=== PATIENT | female | born 1975 | race Caucasian/White ===

== ENCOUNTER → 2021-05-03 13:22 | Outpatient (BNVA) | payer MEDICARE, SELFPAY | PROVIDERS: Visit Provider Nurse Practitioner Family | DX: R00.0 Tachycardia, unspecified (principal); R00.2 Palpitations | CPT/HCPCS: 93005; 99212 ==

== ENCOUNTER → 2021-06-06 11:07 | Outpatient (REF) | payer MEDICARE, SELFPAY ==
--- NOTE | 2021-06-06 11:12 | HM_ITS ---
Conclusion: Patient was monitored for total of 3 days. Baseline rhythm sinus rhythm with average heart rate of 74 beats per minute. There were multiple pauses noted total of 5 with longest pause of 2.7 seconds, all of them during sleep hours. No atrial fibrillation or ventricular tachyarrhythmias noted There were total of 11 PACs, card for less than 0.01% of total beats accounted for very rare PACs. Patient reported 2 events which correlated with sinus rhythm MTDD
== END ==
LOC: HO.CARD 11:07
PROVIDERS: PCP Internal Medicine; Visit Provider Nurse Practitioner Family
DX: R00.2 Palpitations (principal)
CPT/HCPCS: 93242

== ENCOUNTER → 2021-06-29 13:16 | Outpatient (BNVA) | payer MEDICARE, SELFPAY | PROVIDERS: PCP Internal Medicine; Referring Provider Internal Medicine; Visit Provider Nurse Practitioner Family | DX: R00.0 Tachycardia, unspecified (principal); R00.2 Palpitations; G47.33 Obstructive sleep apnea (adult) (pediatric); E66.9 Obesity, unspecified; Z79.899 Other long term (current) drug therapy | CPT/HCPCS: Q3014 ==

== ENCOUNTER → 2022-07-06 13:12 | Outpatient (BNVA) | payer MEDICARE, SELFPAY | PROVIDERS: PCP Internal Medicine; Visit Provider Internal Medicine Cardiovascular Disease | DX: R00.2 Palpitations (principal); R00.0 Tachycardia, unspecified; G47.33 Obstructive sleep apnea (adult) (pediatric); Z98.84 Bariatric surgery status | CPT/HCPCS: 99212 ==

== ENCOUNTER 2023-07-11 13:48 | Outpatient (AMB) | payer OTHER, SELFPAY ==
[2023-07-11 13:55] VITALS: BP 120/80; PULSE 74; BMI 49.2
--- NOTE | 2023-07-11 13:55 | MHC.OFFVIS ---
Intake Vital Signs 07/11/23 13:55 Height 5 ft 4 in Weight 286 lb 9.615 oz BMI 49.2 BP 120/80 Blood Pressure Location Lt brachial Position Sitting Pulse 74 Intake Visit Reasons: 1 year followup w/ekg dx: inapp tachycardia Intake Note: 1 year follow-up with ekg having palpitations and sob [employer]ane [employer]ter Required: No Allergies No Known Allergies [No Known Allergies*] Allergy (Verified 06/29/21 13:18) Medication List - Last Reconciled 07/11/23 by Chalino Sutton MD glatiramer (Copaxone) mg subcut propranolol ER 160 mg PO DAILY 30 days HPI HPI Comments History of Present Illness Details Yarelis comes for follow-up. She has increased symptoms of palpitations recently. She says she has lot of stress related to health issues in her family. She is not using a CPAP regularly. Has not been able to lose much weight. Denies any significant other cardiac symptoms. [facility] Medical History MODESTO (obstructive sleep apnea) Inappropriate sinus tachycardia Surgical History Hx of abdominal surgery History of removal of laparoscopic gastric banding device Hx of laparoscopic gastric banding Family History Father No problems noted. Mother Diabetes HTN (hypertension) Lymphoma Social History Patient Tobacco Use Status: Never used Tobacco Review of Systems Const Denies chills, Denies fatigue, Denies fever(s), Denies frequent falls, Denies weakness, Denies weight gain and Denies weight loss ENT Denies dizziness Card Denies chest pain, Denies leg edema, Denies lightheadedness, Denies palpitations, Denies dyspnea, Denies dyspnea on exertion, Denies orthopnea and Denies other (loss of consciousness) Resp Denies cough, Denies dyspnea and Denies dyspnea on exertion GI Denies hematochezia and Denies change in stool character Musc Denies abnormal gait, Denies muscle weakness, Denies numbness, Denies radiating pain into limb and Denies tingling Neuro Denies abnormal gait, Denies dizziness, Denies frequent falls, Denies numbness, Denies tingling and Denies weakness Endo Denies fatigue and Denies palpitations Physical Exam Vital Signs: Last Vital Signs Pulse 74 07/11/23 13:55 BP 120/80 07/11/23 13:55 BMI result Body Mass Index 49.2 Const General: cooperative, comfortable and no acute distress Orientation/consciousness: patient oriented x3 HEENT Head: Yes normal to inspection Neck Neck: Yes normal visual inspection and Yes no JVD Carotids: normal carotid upstroke Resp Effort & Inspection: normal respiratory effort Auscultation: clear to auscultation bilaterally, no crackles, no rales, no rhonchi and no wheezes Cardio Jugular venous distension: no JVD Rate: regular rate Rhythm: regular rhythm Heart sounds: S1 normal heart sound present, S2 normal heart sound present, no gallops, no murmurs and no rubs Peripheral pulses: Peripheral pulses 2+ throughout Neuro General: patient oriented x3 Extrem General: Yes normal to inspection, No no pedal edema and No calf tenderness Office Procedures EKG Details: EKG shows normal sinus rhythm with normal EKG [id number], Complete Assessment & Plan Assessment & Plan (1) Inappropriate sinus tachycardia: Code(s): R00.0 - Tachycardia, unspecified Plan: Prior history of in approach sinus tachycardia currently on high-dose propranolol therapy with symptoms of palpitations which are most likely suggestive of related to increase catecholamine in surge related to increased personal stress as well as in adequate treatment for sleep apnea. Discussed with her the importance of treatment for sleep apnea to reduce elevated clinical main levels. Participate in aggressive weight loss programs will be recommended. Continue propranolol therapy. Would avoid any additional therapy unless there is significant evidence of arrhythmias. Would suggest a 48 hour altered monitor for the same. Will follow up in the clinic in 1 year's time, sooner p.r.n.. Thank you for allowing me to partake in the care Coding Level of Care Code Est Pt Level 3 (73540) Diagnoses Inappropriate sinus tachycardia R00.0 CPT Codes EKG - CPT: 00867-[id number], Complete ([id number])
== END 2023-07-11 14:36 | disposition home or self-care (01) ==
PROVIDERS: PCP Internal Medicine; Visit Provider Internal Medicine Cardiovascular Disease
DX: R00.0 Tachycardia, unspecified (principal)
CPT/HCPCS: 93010; 99213

== ENCOUNTER → 2023-07-11 13:48 | Outpatient (BNVA) | payer OTHER, SELFPAY | PROVIDERS: PCP Internal Medicine; Visit Provider Internal Medicine Cardiovascular Disease | DX: R00.0 Tachycardia, unspecified (principal) | CPT/HCPCS: 93005; 99212 ==

== ENCOUNTER 2024-09-16 09:45 | Outpatient (AMB) | payer MEDICARE, MEDICAID, SELFPAY ==
--- NOTE | 2024-09-16 09:48 | A.OFFVIS_ITS ---
Vital Signs 09/16/24 09:49 Height 5 ft 4 in Weight 293 lb 3.437 oz BMI 50.3 BP 124/68 Blood Pressure Location Lt brachial Position Sitting Pulse 75 Pulse Source Monitor Intake Visit Reasons: 1 year follow up Allergies No Known Allergies [No Known Allergies*] Allergy (Verified 06/29/21 13:18) Medication List - Last Reconciled 09/16/24 by Chalino Sutton MD glatiramer (Copaxone) mg subcut propranolol ER 160 mg PO DAILY HPI Comments Details: Nancy comes for follow-up. She has no new cardiac symptoms. Has not been able to lose much weight. Currently also not using a CPAP machine. However symptoms of palpitation rapid heart rate have stayed stable. Blood pressures remained stable as well. Denies any exertional chest pain or shortness of breath. No heart failure symptoms. [facility] Medical History MODESTO (obstructive sleep apnea) Inappropriate sinus tachycardia Surgical History Hx of abdominal surgery History of removal of laparoscopic gastric banding device Hx of laparoscopic gastric banding Family History Father No problems noted. Mother Diabetes HTN (hypertension) Lymphoma Social History Patient Tobacco Use Status: Never used Tobacco Review of Systems Const Denies weakness ENT Denies dizziness Card Denies chest pain, Denies chest pain with activity, Denies syncope, Denies rapid heart rate, Denies pedal edema, Denies edema, Denies leg edema, Denies lightheadedness, Denies palpitations, Denies dyspnea, Denies dyspnea on exertion and Denies orthopnea Resp Denies cough, Denies dyspnea and Denies dyspnea on exertion GI Denies hematochezia and Denies change in stool character Musc Denies abnormal gait, Denies muscle cramps, Denies muscle weakness, Denies numbness, Denies radiating pain into limb and Denies tingling Neuro Denies abnormal gait, Denies dizziness, Denies syncope, Denies numbness, Denies tingling and Denies weakness Endo Denies palpitations Physical Exam Vital Signs: Last Vital Signs Pulse 75 09/16/24 09:49 BP 124/68 09/16/24 09:49 BMI result Body Mass Index 50.3 Const General: cooperative, comfortable and no acute distress Orientation/consciousness: patient oriented x3 HEENT Head: Yes normal to inspection Neck Neck: Yes normal visual inspection and Yes no JVD Carotids: normal carotid upstroke Resp Effort & Inspection: normal respiratory effort Auscultation: clear to auscultation bilaterally, no crackles, no rales, no rhonchi and no wheezes Cardio Jugular venous distension: no JVD Rate: regular rate Rhythm: regular rhythm Heart sounds: S1 normal heart sound present, S2 normal heart sound present, no gallops, no murmurs and no rubs Peripheral pulses: Peripheral pulses 2+ throughout Neuro General: patient oriented x3 Extrem General: Yes normal to inspection, No no pedal edema and No calf tenderness Office Procedures EKG Details: EKG shows normal sinus rhythm with normal EKG [id number], Complete Assessment & Plan Assessment & Plan (1) Inappropriate sinus tachycardia: Code(s): R00.0 - Tachycardia, unspecified Category: Medical Plan: Inappropriate sinus tachycardia and possibly hypertension which have been both controlled on propranolol therapy. Doing well on it. Continue the same. Avoidance of stimulants was discussed. Stress mitigation strategies were discussed. Strongly recommended to pursue CPAP therapy for sleep apnea. Also participate in more aggressively in weight loss program. She says she will be trying to do the same. Will follow up in the clinic in couple years. Thank you for allowing me to partake in his care Coding Level of Care Code Est Pt Level 3 (16490) Complex EM visit Add On G2211 Diagnoses Inappropriate sinus tachycardia R00.0 CPT Codes EKG - CPT: 06819-[id number], Complete ([id number])
[2024-09-16 09:49] VITALS: BP 124/68; PULSE 75; BMI 50.3
== END 2024-09-16 10:13 | disposition home or self-care (01) ==
PROVIDERS: PCP Internal Medicine; Visit Provider Internal Medicine Cardiovascular Disease
DX: R00.0 Tachycardia, unspecified (principal)
CPT/HCPCS: 93010; 99213; G2211

== ENCOUNTER → 2024-09-16 09:45 | Outpatient (BNVA) | payer OTHER, SELFPAY | PROVIDERS: PCP Internal Medicine; Visit Provider Internal Medicine Cardiovascular Disease | DX: R00.0 Tachycardia, unspecified (principal); Z99.89 Dependence on other enabling machines and devices | CPT/HCPCS: 93005; 99212 ==

== ENCOUNTER 2025-01-24 18:55 | Emergency (ER) | payer MEDICARE, MEDICAID, SELFPAY ==
[2025-01-24 19:02] VITALS: BP 160/98; PULSE 92; O2SAT 98
[2025-01-24 19:06] VITALS: BP 136/79; PULSE 97; RESP 16; O2SAT 98
[2025-01-24 19:19] VITALS: BP 136/79; PULSE 109; RESP 14; TEMP 36.7; O2SAT 99; BMI 45.8
--- NOTE | 2025-01-24 21:26 | ED_ITS ---
HPI - General Adult General Chief complaint: Allergic Reaction Stated complaint: ?allergic reaction to medication, A&Ox4 Time Seen by Provider: 01/24/25 21:13 Source: patient and EMS Mode of arrival: EMS Limitations: no limitations History of Present Illness ED Provider: Dr. Diana Rowe HPI narrative: Patient comes to the emergency room complaining of an allergic reaction to Glatiramer, which she takes for multiple sclerosis. Patient states that she has been taking this medication for over 10 years and has had mild reactions before. Patient states that today, after injection, she started having facial swelling, nausea and a bit of difficulty breathing. Patient called 911 and they gave her p.o. Benadryl. Patient states that by the time that she arrived to the emergency room, she was asymptomatic and her face was no longer swollen. Related Data Home Medications ?Medication ?Instructions ?Recorded ?Confirmed glatiramer 40 mg/mL subcutaneous mg subcut 05/03/21 09/16/24 syringe (Copaxone) Previous Rx's ?Medication ?Instructions ?Recorded propranolol 160 mg capsule,24 160 mg PO DAILY #90 caps 12/04/23 hr,extended release epinephrine 0.3 mg/0.3 mL 0.3 mg (0.3 mL) IM Q10M PRN 01/24/25 injection, auto-injector (EpiPen) anaphylaxis #2 ea Allergies Allergy/AdvReac Type Severity Reaction Status Date / Time No Known Allergies Allergy Verified 01/24/25 19:20 [No Known Allergies*] Review of Systems Review of Systems: Constitutional : No Weight loss, No Fever, No Chills, No Night Sweats, No Fatigue, No Malaise ENT/Mouth : Complaining of facial swelling which resolved, No Hearing loss, No Ear Pain, No Nasal Congestion, No Sinus Pain, No Hoarseness, No sore throat, No Rhinorrhea, No Swallowing Difficulty Eyes: No Eye Pain, No Swelling, No Redness, No Foreign Body, No Discharge, No Vision Changes Cardiovascular : No Chest Pain, No SOB, No Dyspnea on Exertion, No Orthopnea, No Edema, No Palpitations Respiratory : No Cough, No Sputum, No Wheezing, No Smoke Exposure, No Dyspnea Gastrointestinal : No Nausea, No Vomiting, No Diarrhea, No Constipation, No abdominal Pain, No Hematochezia, No Melena Genitourinary : no irregular bleeding, No Dysuria, No Urinary Frequency, No Hematuria, No Urinary Incontinence, No Urgency, No Flank Pain, No Urinary Flow Changes, No Hesitancy Musculoskeletal : No joint pain, No Myalgias, No Joint Swelling Skin : No Skin Lesions, No rash Neuro : No Weakness, No Numbness, No Paresthesias, No Loss of Consciousness, No Dizziness, No Headache Psych : No Anxiety/Panic, No Depression, No SI/HI/AH/VH, No Social Issues, Heme/Lymph: No Bruising, No Bleeding,No Lymphadenopathy Endocrine : No Polyuria, No Polydipsia, No Temperature Intolerance [facility] Past Medical History Medical History [place]ST[place] (obstructive sleep apnea) Inappropriate sinus tachycardia Surgical History Hx of abdominal surgery History of removal of laparoscopic gastric banding device Hx of laparoscopic gastric banding Family History Family History Father No problems noted. Mother Diabetes HTN (hypertension) Lymphoma Social History Social History Patient Tobacco Use Status: Never used Tobacco Smoked in Last 30 Days: No Advance Directives: No Advance Directives Information Provided: Yes Patient : No Physical Exam ED Vital Signs: Vital Signs - 24 hr 01/24/25 19:06 01/24/25 19:19 Temperature 98.0 F Pulse Rate 97 109 H Respiratory Rate 16 14 Blood Pressure 136/79 136/79 Pulse Oximetry 98 99 Oxygen Delivery Method Room Air Room Air BMI result Body Mass Index 45.8 Const Other: Appearance: Alert. Oriented X3. No acute distress. Eyes: Pupils equal, round and reactive to light. ENT: Pharynx normal. Neck: Normal inspection. Neck supple. No lymph nodes noted. No crepitus CVS: Normal heart rate and rhythm. Pulses normal. Normal S1 and S2 Respiratory: No respiratory distress. Breath sounds normal. No Wheezing. No rales Abdomen: Soft and nontender. No rigidity. No distention. Skin: Skin warm and dry. Normal skin color. Normal skin turgor. Extremities: No lower extremity edema. No Lacerations. No Rash Neuro: Oriented X 3. No motor deficit. No sensory deficit. Moving all extr emities. No slurred speech. CN 2 through 12 grossly intact Psych: calm, cooperative, normal affect Medical Decision Making Medical Decision Making MDM Narrative: Patient is alert, oriented x3, All of patient's vitals are stable Patient is asymptomatic Physical exam normal Patient was given an additional dose of p.o. Pepcid and prednisone. At this time, patient is asymptomatic. Patient feels well for discharge. Differential Diagnosis Differential Diagnoses: The differential diagnosis associated with the presentation includes (Allergic reaction, hypersensitivity reaction) Discharge Plan Discharge Clinical Impression: Allergic reaction Patient Disposition: Home, Self-Care Instructions: General Allergic Reaction (ED) Additional Instructions: Please make sure that you contact your provider who prescribes Copaxone to let him know what happened today and for further instructions regarding or treatment. Please follow-up with your primary care physician tomorrow. If you have any worsening or new symptoms, please return to the emergency room or call 911 Prescriptions: New epinephrine [EpiPen] 0.3 mg/0.3 mL auto-injector 0.3 mg IM Q10M PRN (Reason: anaphylaxis) Qty: 2 0RF Rx Instructions: for 2 doses No Action propranolol 160 mg capsule,extended release 24 hr 160 mg PO DAILY Qty: 90 3RF glatiramer [Copaxone] 40 mg/mL syringe subcut Print Language: Yi
[2025-01-24] MEDS: Famotidine 20 MG TABLET PO (21:33)
[2025-01-24] MEDS: predniSONE 10 MG TABLET 50 MG PO (21:33)
[2025-01-24 21:34] VITALS: BP 143/90; PULSE 90; RESP 16; TEMP 36.7; O2SAT 98
[2025-01-24 21:38] VITALS: BP 149/94; PULSE 89; RESP 16; O2SAT 99
[2025-01-24 22:13] VITALS: BP 149/94; PULSE 89; RESP 16; TEMP 36.7; O2SAT 99
== END 2025-01-24 22:15 | disposition home or self-care (01) ==
PROVIDERS: Emergency Provider Emergency Medicine; PCP Internal Medicine
DX: L50.0 Allergic urticaria (principal)
CPT/HCPCS: 99283; 99284